=== PATIENT | female | born 1975 | race Caucasian/White ===

== ENCOUNTER 2023-03-06 08:04 | Outpatient (CLI) | payer OTHER, SELFPAY | END 2023-03-06 08:05 | disposition home or self-care (01) | PROVIDERS: Visit Provider Dermatology | DX: L40.9 Psoriasis, unspecified (principal); Z79.899 Other long term (current) drug therapy; Z79.631 Long term (current) use of antimetabolite agent | CPT/HCPCS: 80053 ==

== ENCOUNTER 2023-03-21 16:05 | Outpatient (CLI) | payer OTHER, SELFPAY | END 2023-03-21 16:06 | disposition home or self-care (01) | PROVIDERS: Visit Provider Dermatology | DX: Z79.899 Other long term (current) drug therapy (principal) | CPT/HCPCS: 80053; 86480 ==

== ENCOUNTER 2024-11-23 10:15 | Outpatient (CLI) | payer MEDICAID, SELFPAY | END 2024-11-23 10:16 | disposition home or self-care (01) | PROVIDERS: Visit Provider Family Medicine | DX: R03.0 Elevated blood-pressure reading, without diagnosis of hypertension (principal); L40.9 Psoriasis, unspecified; M13.0 Polyarthritis, unspecified; M25.561 Pain in right knee; Z83.3 Family history of diabetes mellitus; Z83.49 Family history of other endocrine, nutritional and metabolic diseases; N39.0 Urinary tract infection, site not specified; Z13.6 Encounter for screening for cardiovascular disorders | CPT/HCPCS: 80053; 80061; 82043; 82570; 83001; 84443; 86376; 86803 ==